=== PATIENT | male | born 1950 | race Caucasian/White ===

== ENCOUNTER 2017-01-09 07:10 | Day surgery (SDC) | payer MEDICARE, OTHER ==
[~2017-01-09 07:10] MED LIST: Lactated Ringers 1,000 ML IV SCH; Lidocaine 1%/Sod Bicarbonate in NS 8.4% 1 ML Syringe PRN; Sodium Chloride 0.9% 10 ML Syringe FLUSH PRN
--- NOTE | 2017-01-09 07:37 | PCM.PREANE ---
Preanesthetic Assessment - Procedure Proposed Procedure: Diagnostic colonoscopy - Anesthesia/Transfusion/Family Hx Anesthesia History: Prior Anesthesia Without Reaction Family History of Anesthesia Reaction: No Transfusion History: No Prior Transfusion(s) Type of Transfusion Reactions: Reports: Unknown - Review of Systems General: No Symptoms Pulmonary: No Symptoms Cardiovascular: Edema, Other Gastrointestinal: No Symptoms Neurological: Seizure (last seizure 4-5 years ago) Other: Reports: None, Easy Bruising, Diabetes, Depression, Anxiety - Physical Assessment NPO Status Date: 01/09/17 NPO Status Time: 17:00 Pulse: 70 O2 Sat by Pulse Oximetry: 92 Respiratory Rate: 17 Blood Pressure: 143/89 Temperature: 37.0 C Height: 1.68 m Weight: 137.892 kg ASA Class: 3 Mental Status: Alert & Oriented x3 Airway Class: Mallampati = 3 Dentition: Reports: Dentures (upper ) Thyro-Mental Finger Breadths: 3 Mouth Opening Finger Breadths: 3 ROM/Head Extension: Full Lungs: Clear to Auscultation, Normal Respiratory Effort Cardiovascular: Regular Rate, Regular Rhythm - Allergies Allergies/Adverse Reactions: Allergies Allergy/AdvReac Type Severity Reaction Status Date / Time meloxicam AdvReac Renal Verified 01/06/17 09:15 Failure metformin AdvReac Renal Verified 01/06/17 09:15 Failure - Blood Blood Available: No Product(s) Available: None - Acknowledgements Anesthesia Type Planned: MAC Pt an Appropriate Candidate for the Planned Anesthesia: Yes Alternatives and Risks of Anesthesia Discussed w Pt/Guardian: Yes Pt/Guardian Understands and Agrees with Anesthesia Plan: Yes PreAnesthesia Questionnaire HEENT History: Reports: Hard of Hearing, Impaired Vision, Other (See Below) Other HEENT History: wears glasses, hearing aid Cardiovascular History: Reports: CAD, Heart Failure, High Cholesterol, Hypertension, Prior Cardiac Arrest (x2. Patient stated he hada cardiac arrest after arriving home from his cardiac surgery and one time in [place]. Stated he had one becasue ofa blood clot in his heart and the other one was from SpO2 in the 40's because of retaining too much fluid.), Stents Respiratory History: Reports: COPD, Sleep Apnea, Other (See Below) Other Respiratory History: lung nodule, sleep apnea Gastrointestinal History: Reports: Colon Polyp, Diverticulosis Genitourinary History: Reports: None VENDETTE History: Reports: None Musculoskeletal History: Reports: Back Pain, Chronic Neurological History: Reports: Neuropathy, Peripheral, Seizure Psychiatric History: Reports: None Endocrine/Metabolic History: Reports: Diabetes, Type II Hematologic History: Reports: None Immunologic History: Reports: None Oncologic (Cancer) History: Reports: None Dermatologic History: Reports: None - Past Surgical History Head Surgeries/Procedures: Reports: None HEENT Surgical History: Reports: Tonsillectomy Cardiovascular Surgical History: GI Surgical History: Reports: Appendectomy, Colonoscopy Female Surgical History: Reports: None Male Surgical History: Reports: None Musculoskeletal Surgical History: Reports: ORIF, Other (See Below) Other Musculoskeletal Surgeries/Procedures:: ORIF L femur, R ankle arthrodesis Oncologic Surgical History: Reports: None - SUBSTANCE USE Smoking Status *Q: Current Every Day Smoker (50+ 1.5ppd) Recreational Drug Use History: No - HOME MEDS Home Medications: Home Meds Albuterol [Ventolin HFA] 2 puff INH BID PRN 01/06/17 [History] Aspirin 81 mg PO DAILY 01/06/17 [History] Carvedilol [Carvedilol] 6.25 mg PO BID 01/06/17 [History] Chlorthalidone 25 mg PO DAILY 01/06/17 [History] Cholecalciferol (Vitamin D3) [Vitamin D3] 1,000 unit PO DAILY 01/06/17 [History] Clopidogrel Bisulfate [Clopidogrel] 75 mg PO DAILY 01/06/17 [History] Dulaglutide [Trulicity] 1 dose SQ WEEKLY 01/06/17 [History] Furosemide [Furosemide] 40 mg PO DAILY 01/06/17 [History] Gabapentin [Gabapentin] 600 mg PO TID 01/06/17 [History] Glimepiride [Glimepiride] 4 mg PO DAILY 01/06/17 [History] Hydrocodone/Acetaminophen [[place] 10-325 Tablet] 1 tab PO Q4H PRN 01/06/17 [ History] Insulin Glargine,Hum.Rec.Anlog [[place] Solostar] 85 units SQ BEDTIME 01/06/17 [ History] Isosorbide Mononitrate [Imdur] 30 mg PO DAILY 01/06/17 [History] Lubiprostone [Amitiza] 24 mcg PO BID 01/06/17 [History] Naproxen Sodium [Aleve] 220 mg PO BID PRN 01/06/17 [History] Nitroglycerin [Nitrostat] 0.4 mg SL Q5M PRN 01/06/17 [History] Simvastatin [Simvastatin] 40 mg PO DAILY 01/06/17 [History] Umeclidinium [place] [Incruse Ellipta] 1 puff INH DAILY 01/06/17 [History] Valsartan [Diovan] 80 mg PO DAILY 01/06/17 [History] sitaGLIPtin Phosphate [Januvia] 50 mg PO DAILY 01/06/17 [History] - CURRENT (IN HOUSE) MEDS Current Meds: Current Medications Lactated Ringer's (Ringers, Lactated) 1,000 mls @ 125 mls/hr IV ASDIRECTED REHANA Stop: 01/09/17 23:00 Lidocaine/Sodium Bicarbonate (Buffered Lidocaine 1% In Ns 8.4%) 0.25 ml .XX ONETIME PRN PRN Reason: Prior to IV Start Stop: 01/09/17 18:00 Sodium Chloride (Saline Flush) 10 ml FLUSH ASDIRECTED PRN PRN Reason: Keep Vein Open Stop: 01/09/17 18:00
[2017-01-09] MEDS ORDERED: Propofol 200 MG/20 ML SDV ONE (08:13)
[2017-01-09] MEDS ORDERED: fentaNYL 100 MCG/2 ML SDV ONE (08:13)
--- NOTE | 2017-01-09 08:49 | PCM.OPNOTE ---
- General Post-Op/Procedure Note Date of Surgery/Procedure: 01/09/17 Operative Procedure(s): colonoscopy to cecum with polypectomy Pre Op Diagnosis: rectal bleeding Post-Op Diagnosis: Same Anesthesia Technique: MAC Primary Surgeon: Sadi Marroquin EBL in mLs: 0 Complications: None Condition: Good
--- NOTE | 2017-01-09 08:51 | PCM48HPAN ---
Post Anesthesia Note - EVALUATION WITHIN 48HRS OF ANESTHETIC Vital Signs in Normal Range: Yes Patient Participated in Evaluation: Yes Respiratory Function Stable: Yes Airway Patent: Yes Cardiovascular Function Stable: Yes Hydration Status Stable: Yes Pain Control Satisfactory: Yes Nausea and Vomiting Control Satisfactory: Yes Mental Status Recovered: Yes
[2017-01-09 09:07] VITALS: BP 156/80
--- NOTE | 2017-01-09 09:33 | OR ---
DATE OF OPERATION: 01/09/2017 SURGEON: Sadi Marroquin MD PREOPERATIVE DIAGNOSIS: Rectal bleeding. POSTOPERATIVE DIAGNOSIS: Rectal bleeding. OPERATION PERFORMED: Colonoscopy to cecum with removal of a diminutive polyp at 70 cm. FINDINGS: Diverticulosis prominent in the descending and sigmoid colon, but scattered throughout the colon and the cecum. There were internal hemorrhoids noted. DESCRIPTION OF PROCEDURE: The patient was taken to the operating room, placed in a supine position, connected to monitoring equipment, given IV sedation, and placed in left lateral position. Perianal area was inspected and was normal. Rectal exam showed good sphincter tone. A video Olympus colonoscope was then introduced into the rectum and threaded up without problem to the cecum, where the appendicular orifice, ileocecal valve was noted. Prep was excellent. [place] cleansing score grade A throughout the colon, and the scope was slowly withdrawn showing the cecum, ascending colon, transverse colon, descending colon, sigmoid colon, and rectum. Retroflexed view was done. The polyp at 70 cm was diminutive, was identified, lassoed with cautery snare, removed and retrieved. Another polyp in the rectum of unknown type was lassoed with cautery snare, but was not retrievable. The patient tolerated the procedure and was sent to recovery room in a stable condition. Specimen sent to Pathology in a labeled container. The patient will be followed up in the clinic. ANESTHESIA: ESTIMATED BLOOD LOSS: MMODAL /[id number]
== END 2017-01-09 09:25 | disposition home or self-care (01) ==
LOC: JD.SDS 07:10
PROVIDERS: ATTEND Surgery
PROC: 0DBM8ZZ Excision of Descending Colon, Via Natural or Artificial Opening Endoscopic (ICD-10-PCS; principal; 2017-01-09)
DX: D12.4 Benign neoplasm of descending colon (principal); K57.30 Diverticulosis of large intestine without perforation or abscess without bleeding; I25.10 Atherosclerotic heart disease of native coronary artery without angina pectoris; I11.0 Hypertensive heart disease with heart failure; I50.9 Heart failure, unspecified; E11.42 Type 2 diabetes mellitus with diabetic polyneuropathy; E78.5 Hyperlipidemia, unspecified; G40.909 Epilepsy, unspecified, not intractable, without status epilepticus; G47.30 Sleep apnea, unspecified; F17.210 Nicotine dependence, cigarettes, uncomplicated; E78.00 Pure hypercholesterolemia, unspecified; J44.9 Chronic obstructive pulmonary disease, unspecified; Z87.19 Personal history of other diseases of the digestive system; Z98.1 Arthrodesis status; Z90.49 Acquired absence of other specified parts of digestive tract; Z90.89 Acquired absence of other organs; Z98.890 Other specified postprocedural states; Z79.4 Long term (current) use of insulin; Z79.84 Long term (current) use of oral hypoglycemic drugs; Z79.02 Long term (current) use of antithrombotics/antiplatelets; Z79.82 Long term (current) use of aspirin; Z79.899 Other long term (current) drug therapy; Z88.8 Allergy status to other drugs, medicaments and biological substances
CPT/HCPCS: 45385; 88305; J3010; J7120; 00810; J2704

== ENCOUNTER 2019-04-02 07:17 | Day surgery (SDC) | payer MEDICARE ==
[~2019-04-02 07:17] MED LIST changes: +Cefuroxime 10 MG/ML SYRINGE EYELF SCH; -Lactated Ringers 1,000 ML IV SCH; +Lidocaine 1% PF 2 ML SDV INJECT SCH; -Lidocaine 1%/Sod Bicarbonate in NS 8.4% 1 ML Syringe PRN; +Pilocarpine 4% Ophth Soln 15 ML Bot EYELF SCH; -Sodium Chloride 0.9% 10 ML Syringe FLUSH PRN
--- NOTE | 2019-04-02 09:02 | PCM.PREANE ---
Preanesthetic Assessment - Procedure Proposed Procedure: Cataract extraction with IOL left eye - Anesthesia/Transfusion/Family Hx Anesthesia History: Prior Anesthesia Without Reaction Transfusion History: No Prior Transfusion(s) Type of Transfusion Reactions: Reports: Unknown - Review of Systems General: No Symptoms Pulmonary: Shortness of Breath, Other (COPD, sleep apnea, CPAP) Cardiovascular: Chest Pain ("skeletal pain not heart pain" ), Dyspnea on Exertion, Orthopnea (unable to lie down flat) Gastrointestinal: No Symptoms Neurological: Seizure (7-8 years ago "could have been missed diagnosed as a sugar crash. I don't have them anymore"), Difficulty Walking (has a walker but uses a wheel chair) Other: Reports: Easy Bleeding, Easy Bruising, Diabetes (gluco check at [id number]) , Neck Pain, Depression, Anxiety - Physical Assessment NPO Status Date: 04/01/19 NPO Status Time: 00:00 Height: 1.68 m Weight: 136.078 kg ASA Class: 3 Mental Status: Alert & Oriented x3 Airway Class: Mallampati = 4 Dentition: Reports: Missing Tooth/Teeth, [place] Thyro-Mental Finger Breadths: 1 Mouth Opening Finger Breadths: 1 ROM/Head Extension: Limited/Partial Lungs: Clear to Auscultation, Normal Respiratory Effort Cardiovascular: Regular Rate, Regular Rhythm - Allergies Allergies/Adverse Reactions: Allergies Allergy/AdvReac Type Severity Reaction Status Date / Time varenicline [From Chantix] Allergy Cannot Verified 03/28/19 14:00 Remember meloxicam AdvReac Renal Verified 03/28/19 14:00 Failure metformin AdvReac Renal Verified 03/28/19 14:00 Failure - Blood Blood Available: No Product(s) Available: None - Anesthesia Plan Pre-Op Medication Ordered: Beta Tanisha Beta Tanisha: Carvedilol Med Last Dose Date: 04/01/19 Med Last Dose Time: 10:30 - Acknowledgements Anesthesia Type Planned: MAC Pt an Appropriate Candidate for the Planned Anesthesia: Yes Alternatives and Risks of Anesthesia Discussed w Pt/Guardian: Yes Pt/Guardian Understands and Agrees with Anesthesia Plan: Yes PreAnesthesia Questionnaire HEENT History: Reports: Hard of Hearing, Impaired Vision, Other (See Below) Other HEENT History: wears glasses, hearing aid Cardiovascular History: Reports: CAD, Heart Failure, High Cholesterol, Hypertension, Prior Cardiac Arrest (x2. Patient stated he hada cardiac arrest after arriving home from his cardiac surgery and one time in [place]. 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 Musculoskeletal History: Reports: Back Pain, Chronic Neurological History: Reports: Neuropathy, Peripheral, Seizure Psychiatric History: Reports: None Endocrine/Metabolic History: Reports: Diabetes, Type II Hematologic History: Reports: None Immunologic History: Reports: None Oncologic (Cancer) History: Reports: None Dermatologic History: Reports: None - Past Surgical History Head Surgeries/Procedures: Reports: None HEENT Surgical History: Reports: Tonsillectomy Cardiovascular Surgical History: GI Surgical History: Reports: Appendectomy, Colonoscopy Female Surgical History: Reports: None Male Surgical History: Reports: None Musculoskeletal Surgical History: Reports: ORIF, Other (See Below) Other Musculoskeletal Surgeries/Procedures:: ORIF L femur, R ankle arthrodesis Oncologic Surgical History: Reports: None - SUBSTANCE USE Smoking Status *Q: Current Every Day Smoker Tobacco Use Within Last Twelve Months: Cigarettes Second Hand Smoke Exposure: No Days Per Week of Alcohol Use: 1 Number of Drinks Per Day: 1 Total Drinks Per Week: 1 Recreational Drug Use History: No - HOME MEDS Home Medications: Home Meds Carvedilol 6.25 mg PO BID 01/06/17 [History] Chlorthalidone 25 mg PO DAILY 01/06/17 [History] Clopidogrel Bisulfate [Clopidogrel] 75 mg PO DAILY 01/06/17 [History] Dulaglutide [Trulicity] 1 dose SQ WEEKLY 01/06/17 [History] Gabapentin 600 mg PO TID 01/06/17 [History] Glimepiride 4 mg PO DAILY 01/06/17 [History] Isosorbide Mononitrate [Imdur] 30 mg PO DAILY 01/06/17 [History] Simvastatin 40 mg PO DAILY 01/06/17 [History] Umeclidinium [place] [Incruse Ellipta] 1 puff INH DAILY 01/06/17 [History] Insulin Degludec [Tresiba] 1 dose SQ ASDIRECTED 03/28/19 [History] - CURRENT (IN HOUSE) MEDS Current Meds: Current Medications Brimonidine Tartrate ([place]ph[place] 0.2% Ophth Soln) 0 ml EYELF ASDIRECTED REHANA Stop: 04/02/19 18:00 Cefuroxime Sodium (Zinacef) 0 mg EYELF ASDIRECTED REHANA Stop: 04/02/19 18:00 Lidocaine HCl (Xylocaine-Mpf 1%) 0 ml INJECT ASDIRECTED REHANA Stop: 04/02/19 18:00 Phenylephrine HCl (Dylan-Synephrine 2.5% Ophth Soln) 0 ml EYELF ASDIRECTED REHANA Stop: 04/02/19 18:00 Pilocarpine HCl (Pilocar 4% Ophth Soln) 0 ml EYELF ASDIRECTED REHANA Stop: 04/02/19 18:00 Polymyxin/Trimethoprim Sulfate (Polytrim Ophth Soln) 0 ml EYELF ASDIRECTED REHANA Stop: 04/02/19 18:00 Tetracaine HCl (Tetracaine 0.5% Steri-Unit Alley) 0 ml EYELF ASDIRECTED REHANA Stop: 04/02/19 18:00 Tropicamide (Mydriacyl 1% Ophth Soln) 0 ml EYELF ASDIRECTED REHANA Stop: 04/02/19 18:00
[2019-04-02] MEDS: Polymyxin B/Trimethoprim 10 ML Bottle EYELF SCH ×3 (09:11→11:34)
[2019-04-02] MEDS: Brimonidine 0.2% Ophth Soln 5 ML Bottle EYELF SCH ×3 (09:16→11:34)
[2019-04-02] MEDS: Phenylephrine 2.5% Ophth Soln 2 ML Bot EYELF SCH ×5 (09:20→11:11)
[2019-04-02] MEDS: Tropicamide 1% Ophth Soln 15 ML Bottle EYELF SCH ×4 (09:26→10:34)
[2019-04-02] MEDS ORDERED: Sodium Chloride 0.9% 1,000 ML IV SCH (09:45)
[2019-04-02] MEDS ORDERED: Albuterol 0.083% 2.5 MG/3 ML Neb Soln NEB ONE (09:58)
[2019-04-02] MEDS ORDERED: Midazolam 1 MG/ML 2 ML SDV ONE (10:26)
[2019-04-02] MEDS: Tetracaine HCl/PF 0.5% 4 ML Bottle EYELF SCH ×2 (10:49→11:15)
--- NOTE | 2019-04-02 11:43 | PCM48HPAN ---
Post Anesthesia Note - EVALUATION WITHIN 48HRS OF ANESTHETIC Vital Signs in Normal Range: Yes Patient Participated in Evaluation: Yes Respiratory Function Stable: Yes Airway Patent: Yes Cardiovascular Function Stable: Yes Hydration Status Stable: Yes Pain Control Satisfactory: Yes Nausea and Vomiting Control Satisfactory: Yes Mental Status Recovered: Yes Vital Signs: Last Vital Signs Temp 37.0 C 04/02/19 08:55 Pulse 73 04/02/19 08:55 Resp 20 04/02/19 08:55 BP 139/87 04/02/19 08:55 Pulse Ox 93 L 04/02/19 09:58 - COMMENTS/OBSERVATIONS Free Text/Narrative:: no anesthesia complications noted
[2019-04-02 12:38] VITALS: BP 128/78; PULSE 62
== END 2019-04-02 12:10 | disposition home or self-care (01) ==
LOC: JD.SDS 07:17
PROVIDERS: ATTEND Ophthalmology
DX: E11.36 Type 2 diabetes mellitus with diabetic cataract (principal); H25.813 Combined forms of age-related cataract, bilateral; H16.103 Unspecified superficial keratitis, bilateral; H16.223 Keratoconjunctivitis sicca, not specified as Sjogren's, bilateral; H02.834 Dermatochalasis of left upper eyelid; H02.831 Dermatochalasis of right upper eyelid; H21.81 Floppy iris syndrome; M19.90 Unspecified osteoarthritis, unspecified site; J44.9 Chronic obstructive pulmonary disease, unspecified; F17.210 Nicotine dependence, cigarettes, uncomplicated; Z79.4 Long term (current) use of insulin; Z79.899 Other long term (current) drug therapy; Z79.02 Long term (current) use of antithrombotics/antiplatelets; Z88.8 Allergy status to other drugs, medicaments and biological substances
CPT/HCPCS: 66982; 82962; 94640; J0697; J2001; J2250; J7040; V2632

== ENCOUNTER 2021-05-15 14:14 | Emergency (ER) | payer MEDICARE, MEDICAID ==
--- NOTE | 2021-05-15 15:13 | EDM.PDOC ---
ED HPI GENERAL MEDICAL PROBLEM - General Chief Complaint: Lower Extremity Injury/Pain Stated Complaint: [facility] Time Seen by Provider: 05/15/21 14:23 Source of Information: Reports: Patient, EMS Notes Reviewed, RN Notes Reviewed History Limitations: Reports: No Limitations - History of Present Illness INITIAL COMMENTS - FREE TEXT/NARRATIVE: Patient is a 71-year-old male brought to the ER by [facility] for the evaluation of his left ankle pain. Patient states he has been pretty much bedridden, since around March. He did used to live in the [facility], but states that he hated that place and now lives at home. States that he has not had much help at home, and again not really got out of his bed much at all since March. He did have a few gentleman come over today to help him from a bed to a chair, he states that they were not strong enough to hold him with a combination of him being mildly weak and he he ended up falling. States that he landed on his left ankle and this is where is having most of his pain is on the lateral portion of his left ankle. Says that he typically takes gabapentin, for pain management but he also had some hydrocodone and took this for pain and states this helped a little bit. He states he has not been able to bear much weight on the extremity as well. Again he is not very mobile and states he has not gotten out of bed much since March. He is not complaining of any fevers or chills, cough or shortness of breath or any sort of nausea/vomiting/diarrhea. Patient notes that he has some sores under his abdomen as well. Left Ankle Pain Score (Numeric/FACES): 4 - Related Data Allergies Allergy/AdvReac Type Severity Reaction Status Date / Time varenicline [From Chantix] Allergy Cannot Verified 05/15/21 14:35 Remember meloxicam AdvReac Renal Verified 05/15/21 14:35 Failure metformin AdvReac Renal Verified 05/15/21 14:35 Failure Home Meds: Home Meds Chlorthalidone 25 mg PO DAILY 01/06/17 [History] Glimepiride 4 mg PO DAILY 01/06/17 [History] Isosorbide Mononitrate [Imdur] 30 mg PO DAILY 01/06/17 [History] Simvastatin 40 mg PO BEDTIME 01/06/17 [History] Umeclidinium Bruner [Incruse Ellipta] 1 puff INH DAILY 01/06/17 [History] carvediloL [Carvedilol] 6.25 mg PO BID 01/06/17 [History] Insulin Degludec [Tresiba] 1 dose SQ ASDIRECTED 03/28/19 [History] Albuterol Sulfate [Proventil Hfa] 05/15/21 [History] Aspirin [Aspirin EC] 05/15/21 [History] Cholecalciferol (Vitamin D3) [Vitamin D3] 05/15/21 [History] Cyanocobalamin (Vitamin B-12) [Vitamin B-12] 05/15/21 [History] Furosemide 40 mg PO DAILY 05/15/21 [History] Hydrocodone/Acetaminophen [HYDROcodone-Acetaminophen 10-325 MG] 1 tab PO Q4HR 05/15/21 [History] Naproxen Sodium [Aleve] PRN 05/15/21 [History] Past Medical History HEENT History: Reports: Hard of Hearing, Impaired Vision, Other (See Below) Other HEENT History: wears glasses, hearing aid Cardiovascular History: Reports: CAD, Heart Failure, High Cholesterol, Hypertension, Prior Cardiac Arrest, Stents Respiratory History: Reports: COPD, Sleep Apnea, Other (See Below) Other Respiratory History: lung nodule, sleep apnea, home O2 at night Gastrointestinal History: Reports: Colon Polyp, Diverticulosis Genitourinary History: Reports: None [employer] History: Reports: None Musculoskeletal History: Reports: Back Pain, Chronic Neurological History: Reports: Neuropathy, Peripheral, Seizure Psychiatric History: Reports: None Endocrine/Metabolic History: Reports: Diabetes, Type II Hematologic History: Reports: None Immunologic History: Reports: None Oncologic (Cancer) History: Reports: None Dermatologic History: Reports: None - Past Surgical History Head Surgeries/Procedures: Reports: None HEENT Surgical History: Reports: Tonsillectomy GI Surgical History: Reports: Appendectomy, Colonoscopy Male Surgical History: Reports: None Musculoskeletal Surgical History: Reports: ORIF, Other (See Below) Other Musculoskeletal Surgeries/Procedures:: ORIF L femur, R ankle arthrodesis Oncologic Surgical History: Reports: None Social & Family History - Tobacco Use Tobacco Use Status *Q: Unknown Ever Used Tobacco - Caffeine Use Caffeine Use: Reports: None Review of Systems - Review of Systems Review Of Systems: Comprehensive ROS is negative, except as noted in HPI. ED EXAM, GENERAL - Physical Exam Exam: See Below Exam Limited By: No Limitations General Appearance: Alert, WD/WN, No Apparent Distress Respiratory/Chest: No Respiratory Distress, Lungs Clear, Normal Breath Sounds, No Accessory Muscle Use, Chest Non-Tender Cardiovascular: Normal Peripheral Pulses, Regular Rate, Rhythm, No Edema Peripheral Pulses: 2+: Radial (L), Radial (R) GI/Abdominal: Normal Bowel Sounds, Soft, Non-Tender, No Distention, No Mass, Other (does have erythema to abdominal skin folds and associated warmth.) Extremities: Normal Range of Motion, Normal Capillary Refill, Other (pain with palpation of left lateral malleolus) Neurological: Alert, Oriented, Normal Cognition, No Motor/Sensory Deficits Psychiatric: Normal Affect, Normal Mood Skin Exam: Warm, Dry, Intact, Normal Color, No Rash, Other (pt does have generalized flaky skin; does appear disheveled/unkempt) ED TRAUMA EXTREMITY PROCEDURES - Splinting Left Lower Extremity Splint Site: L ankle Pre-Procedure NV Status: Normal Post-Procedure NV Status: Normal Splint Material: Boot Orthotic Applied & Form Fitted By: Nurse Provider Post-Splint Application NV Check: NV Status Normal, Good Position Course - Vital Signs Last Recorded V/S: Last Vital Signs Temp 97.9 F 05/15/21 14:21 Pulse 76 05/15/21 17:00 Resp 16 05/15/21 17:00 BP 99/80 05/15/21 17:00 Pulse Ox 96 05/15/21 17:00 - Orders/Labs/Meds Orders: Active Orders 24 hr Category Date Time Status Peripheral IV Care [RC] . DIRECTED Care 05/15/21 16:35 Active Ankle Min 3V Lt [CR] Stat Exams 05/15/21 14:26 Taken Sodium Chloride 0.9% [Saline Flush] Med 05/15/21 16:35 Active 10 ml FLUSH ASDIRECTED PRN DME for Discharge [COMM] Routine Oth 05/15/21 15:05 Ordered Peripheral IV Insertion Adult [OM.PC] Routine Oth 05/15/21 16:35 Ordered Medication Orders Sodium Chloride (Sodium Chloride 0.9% 10 Ml Syringe) 10 ml FLUSH ASDIRECTED PRN PRN Reason: Keep Vein Open Last Admin: 05/15/21 17:13 Dose: 10 ml Documented by: HODAN Labs: Laboratory Tests 05/15/21 05/15/21 05/15/21 Range/Units 15:15 15:32 15:32 WBC 24.95 H (4.23-9.07) K/mm3 RBC 5.68 (4.63-6.08) M/mm3 Hgb 15.7 (13.7-17.5) gm/dl Hct 49.8 (40.1-51.0) % MCV 87.7 D (79.0-92.2) fl MCH 27.6 (25.7-32.2) pg MCHC 31.5 L (32.2-35.5) g/dl RDW Std Deviation 51.6 H (35.1-43.9) fL Plt Count 344 H D (163-337) K/mm3 MPV 11.1 (9.4-12.3) fl Neut % (Auto) 81.6 H (34.0-67.9) % Lymph % (Auto) 10.7 L (21.8-53.1) % [place] % (Auto) 5.1 L (5.3-12.2) % Eos % (Auto) 0.7 L (0.8-7.0) Baso % (Auto) 0.4 (0.1-1.2) % Neut # (Auto) 20.36 H (1.78-5.38) K/mm3 Lymph # (Auto) 2.67 (1.32-3.57) K/mm3 [place] # (Auto) 1.26 H (0.30-0.82) K/mm3 Eos # (Auto) 0.18 (0.04-0.54) K/mm3 Baso # (Auto) 0.10 H (0.01-0.08) K/mm3 Manual Slide Review Abnormal smear Sodium 144 D (136-145) mEq/L Potassium 2.8 L (3.5-5.1) mEq/L Chloride 101 (98-107) mEq/L Carbon Dioxide 31 (21-32) mEq/L Anion Gap 14.8 (5-15) BUN 23 H (7-18) mg/dL Creatinine 1.2 (0.7-1.3) mg/dL Est Cr Clr Drug Dosing TNP Estimated GFR (MDRD) 60 (>60) mL/min BUN/Creatinine Ratio 19.2 H (14-18) Glucose 137 H (70-99) mg/dL Calcium 9.7 (8.5-10.1) mg/dL Total Bilirubin 0.4 (0.2-1.0) mg/dL AST 38 H (15-37) U/L ALT 38 (16-63) U/L Alkaline Phosphatase 136 H (46-116) U/L Total Protein 6.3 L (6.4-8.2) g/dl Albumin 3.3 L (3.4-5.0) g/dl Globulin 3.0 gm/dL Albumin/Globulin Ratio 1.1 (1-2) Influenza Type A RNA Negative (NEGATIVE) Influenza Type B RNA Negative (NEGATIVE) SARS-CoV-2 RNA (GERMAN) Negative (NEGATIVE) Meds: Medications Generic Name Dose Route Start Last Admin Trade Name Freq PRN Reason Stop Dose Admin Sodium Chloride 10 ml 05/15/21 16:35 05/15/21 17:13 Sodium Chloride 0.9% 10 Ml Syringe FLUSH 10 ml ASDIRECTED PRN Administration Keep Vein Open Discontinued Medications Generic Name Dose Route Start Last Admin Trade Name Freq PRN Reason Stop Dose Admin Ceftriaxone Sodium 2 gm/ 100 mls @ 200 mls/hr 05/15/21 16:48 05/15/21 17:02 Sodium Chloride IV 05/15/21 17:17 200 mls/hr ONETIME ONE Administration Potassium Chloride 40 meq 05/15/21 16:32 05/15/21 17:01 Potassium Chloride 20 Meq Tab.Er PO 05/15/21 16:33 40 meq ONETIME ONE Administration - Re-Assessments/Exams Free Text/Narrative Re-Assessment/Exam: 05/15/21 16:10 Patient's x-rays were obtained at the time of triage, there is a minimally displaced fracture running through the medial malleolus there is a subtle irregularity of the distal fibula which is concerning for nondisplaced fracture ankle mortise remains well aligned. Mild soft tissue swelling noted. Patient will be put in a walking boot to prevent further injury and immobilize the left ankle. I did discuss with the patient, my concern for his ability to be able to take care of himself at home, and I have ordered some basic labs and a Covid screen for possible hospital admission for pain control and/or rehab with possible assisted living/custodial placement. 05/15/21 17:00 Patient's white count was elevated at 24,000 with 80% neutrophils on the auto differential. I do believe patient has some cellulitis in his skin folds on his abdomen will treat with 2 g Rocephin. Potassium was mildly low at 2.8 as well we will give him 40 mEq oral potassium for initial management. Patient will necessitate hospitalization for his multiple illnesses I did call Dr. Campa, hospitalist at [facility] and he does ultimately accept the patient for transfer. Departure - Departure Time of Disposition: 17:01 Disposition: DC/Tfer to Acute Hospital 02 Condition: Good Clinical Impression: Hypokalemia Cellulitis Qualifiers: Site of cellulitis: trunk Site of cellulitis of trunk: abdominal wall Qualified Code(s): L03.311 - Cellulitis of abdominal wall Medial malleolar fracture Qualifiers: Encounter type: initial encounter Fracture type: closed Fracture alignment: displaced Laterality: left Qualified Code(s): S82.52XA - Displaced fracture of medial malleolus of left tibia, initial encounter for closed fracture Fracture of distal end of fibula Qualifiers: Encounter type: initial encounter Fracture type: closed Fracture morphology: other fracture Laterality: left Qualified Code(s): S82.832A - Other fracture of upper and lower end of left fibula, initial encounter for closed fracture - Discharge Information Referrals: Reilly Berrios MD [Primary Care Provider] - Forms: ED Department Discharge Sepsis Event Note (ED) - Evaluation Sepsis Screening Result: No Definite Risk - Focused Exam Vital Signs: Vital Signs Temp Pulse Resp BP Pulse Ox 05/15/21 17:00 76 16 99/80 96 05/15/21 16:00 79 18 135/89 97 05/15/21 15:00 73 114/103 H 97 05/15/21 14:21 97.9 F 82 18 130/94 H 91 L - My Orders Last 24 Hours: My Active Orders 05/15/21 14:26 Ankle Min 3V Lt [CR] Stat 05/15/21 15:05 DME for Discharge [COMM] Routine 05/15/21 16:35 Peripheral IV Care [RC] . DIRECTED Sodium Chloride 0.9% [Saline Flush] 10 ml FLUSH ASDIRECTED PRN Peripheral IV Insertion Adult [OM.PC] Routine - Assessment/Plan Last 24 Hours: My Active Orders 05/15/21 14:26 Ankle Min 3V Lt [CR] Stat 05/15/21 15:05 DME for Discharge [COMM] Routine 05/15/21 16:35 Peripheral IV Care [RC] . DIRECTED Sodium Chloride 0.9% [Saline Flush] 10 ml FLUSH ASDIRECTED PRN Peripheral IV Insertion Adult [OM.PC] Routine
[2021-05-15 15:53] LABS: CORONAVIRUS COVID-19 NAA NEGATIVE (NEGATIVE)
[2021-05-15] MEDS ORDERED: Potassium Chloride 20 MEQ Tab.ER PO ONE (16:32)
[2021-05-15] MEDS ORDERED: Sodium Chloride 0.9% 10 ML Syringe FLUSH PRN (16:35)
[2021-05-15] MEDS ORDERED: cefTRIAXone 2 GM in Sodium Chloride 0.9% 100 ML IV ONE (16:48)
[2021-05-15 19:26] VITALS: BP 110/77; PULSE 66
--- NOTE | 2021-05-16 11:28 | CR ---
Left ankle: 4 views of the left ankle were obtained. Comparison: No prior ankle study is available. Fracture is seen within the medial malleolus. Bony structures are diffusely osteopenic. No definite additional fracture or dislocation is noted. Impression: 1. Prominent osteopenia. 2. Nondisplaced fracture within the medial malleolus. Diagnostic code #3
== END 2021-05-15 19:25 ==
LOC: JD.ED 14:14
DX: S82.52XA Displaced fracture of medial malleolus of left tibia, initial encounter for closed fracture (principal); S82.832A Other fracture of upper and lower end of left fibula, initial encounter for closed fracture; L03.311 Cellulitis of abdominal wall; E87.6 Hypokalemia; I11.0 Hypertensive heart disease with heart failure; I50.9 Heart failure, unspecified; I25.10 Atherosclerotic heart disease of native coronary artery without angina pectoris; J44.9 Chronic obstructive pulmonary disease, unspecified; E11.42 Type 2 diabetes mellitus with diabetic polyneuropathy; Z88.8 Allergy status to other drugs, medicaments and biological substances; Z79.82 Long term (current) use of aspirin; Z79.899 Other long term (current) drug therapy; Z79.4 Long term (current) use of insulin; Z20.822 Contact with and (suspected) exposure to COVID-19; X50.1XXA Overexertion from prolonged static or awkward postures, initial encounter; Y92.009 Unspecified place in unspecified non-institutional (private) residence as the place of occurrence of the external cause
CPT/HCPCS: 0240U; 36415; 73610; 80053; 82947; 85025; 96365; 99285; A9270; J0696